=== PATIENT | female | born 1995 | race Caucasian/White ===

== ENCOUNTER 2016-08-17 16:22 | Emergency (ER) | payer BC, OTHER ==
[~2016-08-17] VITALS: Ht 172.7 cm; Wt 65.4 kg
[2016-08-17] MEDS ORDERED: KETOROLAC 30 MG/ML (TORADOL) 1 ML VIAL IV ONE (16:50)
[2016-08-17] MEDS ORDERED: KETOROLAC 60 MG/2 ML (TORADOL) VIAL IM ONE (16:50)
[2016-08-17] MEDS ORDERED: HYDROmorphone 1 MG/ML (DILAUDID) SYRINGE IM ONE (16:50)
[2016-08-17] MEDS ORDERED: HYDROmorphone 1 MG/ML (DILAUDID) SYRINGE IV ONE (16:50)
[2016-08-17] MEDS: SODIUM CHLORIDE FLUSH 10 ML SYR IV PRN ×3 (17:01→17:22)
[2016-08-17] MEDS ORDERED: LIDOCAINE 2% (XYLOCAINE) 20 ML VIAL INJ ONE (17:15)
[2016-08-17] MEDS: LORazepam 2 MG/ML (ATIVAN) 1 ML VIAL IV ONE ×2 (17:15→17:19)
[2016-08-17] MEDS ORDERED: ED- HYDROcodone/ACETAMINOPHEN 5MG/325MG (NORCO) 6 TABLETS/BTL PO ONE (19:05)
[2016-08-18 08:00] VITALS: BP 111/70
== END 2016-08-17 19:35 | disposition home or self-care (01) ==
LOC: ED 16:25
DX: S62.610A Displaced fracture of proximal phalanx of right index finger, initial encounter for closed fracture (principal); W03.XXXA Other fall on same level due to collision with another person, initial encounter; Y93.67 Activity, basketball; Y92.214 College as the place of occurrence of the external cause; Y99.8 Other external cause status
CPT/HCPCS: 73130; 73140; 96374; 96375; 99284; J1170; J1885; J2001